=== PATIENT | female | born 1955 | race Hispanic/Latino ===

== ENCOUNTER 2019-04-05 09:55 | Day surgery (SDC) | payer OTHER ==
[2019-04-05] MEDS ORDERED: NACL 0.9% 1000 ML 1,000 ML IV SCH (12:20)
[2019-04-05] MEDS ORDERED: DIPRIVAN 10 MG/ML IV ONE (12:55)
--- NOTE | 2019-04-05 13:39 | Anesthesia Consultation ---
Anesthesia Consult and Med Hx Date of service: 04/05/19 - Airway Anesthetic Teeth Evaluation: Good ROM Head & Neck: Adequate Mental/Hyoid Distance: Adequate Mallampati Class: Class II Intubation Access Assessment: Good - Pulmonary Exam CTA: Yes - Cardiac Exam Cardiac Exam: RRR - Pre-Operative Health Status ASA Pre-Surgery Classification: ASA2 Proposed Anesthetic Plan: MAC - Pulmonary Hx Smoking: Yes (QUIT 4 MONHTS AGO) Hx Asthma: No COPD: No - Other Systems Hx Alcohol Use: Yes (QUIT 7 YEARS AGO, RECOVERING ALCOHOLIC) Hx Cancer: Yes (HX OF BREAST CA)
--- NOTE | 2019-04-05 13:52 | Short Stay Summary ---
Short Stay Documentation Date of service: 04/05/19 Narrative H&P: The patient present for her first colonoscopy. Average risks. - History Past Medical History: cancer (Personal history of breast cancer) Past Surgical History: Other (breast surgery) Social history: other (Prior history of alcohol abuse. Quit 7 years ago. Quit smoking 6 months ago) - Allergies and Medications Current Medications: Allergies Penicillins Allergy (Verified 04/05/19 12:16) Hives,SHORTNESS OF BREATH Home Medications Medication Instructions Recorded Confirmed Last Taken Type RX: Gabapentin [Neurontin] 1 tab PO DAILY 04/05/19 04/05/19 04/04/19 History Active Medications Sodium Chloride (Nacl 0.9% 1000 Ml) 1,000 mls @ 50 mls/hr IV DIRECT JOON Last Admin: 04/05/19 12:30 Dose: 50 mls/hr Documented by: - Physical exam General appearance: no acute distress, well-nourished, other (anxious) Integumentary: no rash, no growths, no abnormal pigmentation HEENT: Atraumatic, PERRLA, EOMI, Mucous membr. moist/pink Lungs: Clear to auscultation, Normal air movement Breasts: deferred Heart: Regular rate, Normal S1, Normal S2, No murmurs Gastrointestinal: normoactive bowel sounds, no tenderness, no distended, no masses, no guarding, no hepatomegaly, no splenomegaly, no obese Female Genitourinary: deferred Rectal Exam: deferred Extremities: no ischemia, pulses intact, pulses symmetrical, No edema, normal temperature, normal color, Full ROM Neurological: Normal gait, Normal speech, Strength at 5/5 X4 ext, Normal tone, Sensation intact, Cranial nerves 3-12 NL, Reflexes 2+ - Brief post op/procedure progress note Date of procedure: 04/05/19 Findings: see dictated report Estimated blood loss: none Pathology: none Condition: stable - Disposition Condition at discharge: Good Disposition: DC-01 TO HOME OR SELFCARE - Discharge Diagnoses (1) Colon cancer screening Status: Acute (2) History of breast cancer Status: Acute Short Stay Discharge Plan Activity: other (no driving for 24 hours) Weight Bearing Status: Weight Bear as Tolerated Diet: regular Follow up with: DEMIAN SARMIENTO MD [Primary Care Provider] - 7 Days
--- NOTE | 2019-04-05 13:54 | Operative Report ---
Operative Report Operative Report: Date of procedure: 04/05/2019 Preprocedure diagnosis: Cancer screening. No prior studies. Personal history of breast cancer. Post procedure diagnosis: Diverticula throughout the colon. No evidence of neoplasia. Procedure: Colonoscopy to the cecum Endoscopist: Dr. Mckeon Anesthesia: Monitored anesthesia care per anesthesia department Estimated blood loss: 0 Medications: Monitored anesthesia care. See separate report by anesthesia for details. After careful discussion of the nature and purpose of the procedure as well as details of the technique risks benefits and alternatives the patient gave consent. Please see recent history and physical from the office. The patient was placed in the left lateral decubitus position and medicated per anesthesia. A rectal exam was performed sphincter tone was normal there were no masses palpable. The [employer] 570 scope was passed transanally and advanced under continuous direct vision without difficulty to the cecum. The colon was well prepared. The cecum was normal. The ascending colon healed a few diverticula, but otherwise was normal and on forward and retroflexed views. The transverse colon, descending colon, and sigmoid colon reveals scattered diverticula, but otherwise were normal. The rectum was normal on forward and retroflexed views. The procedure was well-tolerated overall and the patient was observed in recovery. Conclusions: Scattered diverticula throughout the colon. Otherwise normal study. Plan: Repeat colonoscopy in 5 years in light of personal history of breast cancer. Signed electronically: Tay Mckeon M.D.
[2019-04-05 14:27] VITALS: BP 107/70
== END 2019-04-05 09:56 | disposition home or self-care (01) ==
LOC: GIO 09:55
PROVIDERS: ATTEND Internal Medicine Gastroenterology
DX: Z12.11 Encounter for screening for malignant neoplasm of colon (principal); K57.30 Diverticulosis of large intestine without perforation or abscess without bleeding; Z85.3 Personal history of malignant neoplasm of breast; Z79.899 Other long term (current) drug therapy; Z87.891 Personal history of nicotine dependence; Z88.0 Allergy status to penicillin; Z98.890 Other specified postprocedural states; Z72.89 Other problems related to lifestyle
CPT/HCPCS: 45378; J2704; J7030